=== PATIENT | female | born 1975 ===

== ENCOUNTER 2016-12-18 22:43 | Emergency (ER) | payer OTHER ==
[~2016-12-18] VITALS: Ht 157.5 cm; Wt 64.6 kg
[2016-12-18 22:44] VITALS: Ht 157.5 cm; Wt 64.6 kg
[2016-12-19] MEDS ORDERED: NAPH15DR22 BOTH EYES (03:14)
[2016-12-19] MEDS ORDERED: CETI10CA PO (03:14)
[2016-12-19] MEDS ORDERED: BEN25 PO (03:18)
[2016-12-19] MEDS ORDERED: LORA5TAB4 PO (03:18)
[2016-12-19] MEDS ORDERED: KETO5DRO59 OP (03:18)
--- NOTE | 2016-12-19 03:19 | ERD ---
ER Documentation Chief Complaint Date/Time DATE: 12/19/16 TIME: 03:15 Chief Complaint bilateral eye itchiness HPI 41-year-old female presents here in emergency department for complaints of bilateral eye itching and redness for 2 days. Patient patten Ketotifen, Claritin, Benadryl, does not help. Patient denies any eye discharge. Patient is complaining of bilateral eye watery. Patient denies any foreign body sensation in the eye. Patient denies any vision changes. Patient denies any eye pain. ROS All systems reviewed and are negative except as per history of present illness. Medications Home Meds Active Scripts Cetirizine Hcl* (Zyrtec*) 10 Mg Capsule, 10 MG PO DAILY, #30 TAB.CHEW Prov:JANES LARRY TRADE FACILITATOR 12/19/16 Naphazoline-Pheniramine* (Visine-A*) 15 Ml Drops, 2 DROP BOTH EYES Q4H Y for ITCHING, #1 BOT Prov:JANES LARRY TRADE FACILITATOR 12/19/16 Reported Medications Loratadine* (Claritin*) Unknown Strength Tab.rapdis, PO DAILY, #30 TAB 12/19/16 Diphenhydramine Hcl* (Benadryl*) Unknown Strength Cap, PO Q6 Y for ITCHING/RASH , #30 TAB 12/19/16 Ketotifen Fumarate (KETOTIFEN FUMARATE) Unknown Strength Drops, OP, BOTTLE 12/19/16 Allergies Allergies: Coded Allergies: No Known Allergy (Unverified , 06/22/15) PMhx/Soc Medical and Surgical Hx: pt denies Medical Hx, pt denies Surgical Hx History of Surgery: No Anesthesia Reaction: No Hx Neurological Disorder: No Hx Respiratory Disorders: No Hx Cardiac Disorders: No Hx Psychiatric Problems: No Hx Miscellaneous Medical Probl: No Hx Alcohol Use: No Hx Substance Use: No Hx Tobacco Use: No Smoking Status: Never smoker FmHx Family History: No coronary disease, No diabetes, No other Physical Exam Vitals Vital Signs Date Time Temp Pulse Resp B/P Pulse Ox O2 Delivery O2 Flow Rate FiO2 12/18/16 22:44 98.1 105 20 161/92 100 Physical Exam GENERAL: The patient is well developed and appropriate for usual state of health, in no apparent distress. CHEST: Clear to auscultation bilaterally. There are no rales, wheezes or rhonchi. HEART: Regular rate and rhythm. No murmurs, clicks, rubs or gallops. No S3 or S4. ABDOMEN: Soft, nontender and nondistended. Good bowel sounds. No rebound or guarding. No gross peritonitis. No gross organomegaly or masses. No Schneider sign or McBurney point tenderness. BACK: No midline or flank tenderness. EXTREMITIES: Equal pulses bilaterally. There is no peripheral clubbing, cyanosis or edema. No focal swelling or erythema. Full range of motion. Grossly neurovascularly intact. NEURO: Alert and oriented. Cranial nerves 2-12 intact. Motor strength in all 4 extremities with 5/5 strength. Sensation grossly intact. Normal speech and gait. SKIN: There is no apparent rash or petechia. The skin is warm and dry. HEMATOLOGIC AND LYMPHATIC: There is no evidence of excessive bruising or lymphedema. No gross cervical, axillary, or inguinal lymphadenopathy. Procedures/MDM Medical decision making: Patient's symptoms most active consistent with allergic conjunctivitis. No symptoms of any acute bacterial infection. Low suspicion for any eye emergencies at this time. Patient does not complain of eye pain or any vision changes. Patient was given a Zyrtec, Naphcon ophthalmic solution, is advised to follow-up with primary care doctor in 1-2 days, has an appointment tomorrow, and possibly see an card lacer specialist. Patient was advised to return to emergency department for worsening symptoms. Departure Diagnosis: Primary Impression: Allergic conjunctivitis Laterality: bilateral Qualified Code: H10.13 - Allergic conjunctivitis, bilateral Condition: Stable Patient Instructions: Conjunctivitis, Allergic Additional Instructions: see oil fire specialist if continue to persist JANES LARRY NP December 19, 2016 03:19
== END 2016-12-19 03:22 | disposition home or self-care (01) ==
LOC: FTE 22:43
DX: H10.13 Acute atopic conjunctivitis, bilateral (principal)
CPT/HCPCS: 99283